=== PATIENT | female | born 1990 | race Caucasian/White ===

== ENCOUNTER 2017-02-20 15:30 | Observation (INO) | payer OTHER ==
[~2017-02-20] VITALS: Ht 160 cm; Wt 69.4 kg
== END 2017-02-20 23:02 | disposition home or self-care (01) ==
LOC: SPU 15:30
PROVIDERS: ADMIT Specialist; ATTEND Specialist
DX: O48.0 Post-term pregnancy (principal); Z3A.42 42 weeks gestation of pregnancy
CPT/HCPCS: 59025; 81002; G0378